=== PATIENT | male | born 2000 | race Two or more races ===

== ENCOUNTER 2023-04-09 09:38 | Emergency (ER) | payer MEDICAID ==
[~2023-04-09] VITALS: Ht 185.4 cm; Wt 86.0 kg
[2023-04-09] MEDS ORDERED: VANCOMYCIN 1GM/250ML 250 ML IV ONE (12:45)
[2023-04-09] MEDS ORDERED: PIPERACILLIN-TAZO 4.5GM 100 ML IV ONE (12:45)
[2023-04-09 13:34] LABS: Albumin 3.8 g/dL (3.4-5.0); Calcium 9.8 mg/dL (8.5-10.1)
[2023-04-09 13:39] LABS: BUN/Creatinine Ratio 11.7 (10.0-20.0); Bilirubin, Total 1.1 mg/dL (0.2-1.0); Total Protein 8.4 g/dL (6.4-8.2)
[2023-04-09 13:42] LABS: Basophils # (auto) 0.1 10 ^3/uL (0-0.2); Basophils % (auto) 0.3 % (0.0-2.0); Eosinophils # (auto) 0 10 ^3/uL (0-0.8); Eosinophils % (auto) 0.1 % (0.0-7.0); Lymphocytes # (auto) 2.1 10 ^3/uL (0.4-5.4); Lymphocytes % (auto) 8.9 % (10.0-50.0); Mean Corpuscular Hemoglobin 30.4 pg (28.0-32.0); Mean Corpuscular Volume 89.3 fL (80.0-100.0); Monocytes # (auto) 2.7 10 ^3/uL (0-1.3); Monocytes % (auto) 11.6 % (0.0-12.0); Neutrophils # (auto) 18.7 10 ^3/uL (1.6-8.6); Neutrophils % (auto) 79.1 % (37.0-80.0); Nucleated Red Blood Cells % 0.1 %; Red Blood Cells 5.26 10^6/uL (4.5-5.90); Red Cell Distribution Width 12.4 % (11.8-14.3); White Blood Cell 23.6 10^3/uL (4.4-10.8)
[2023-04-09 13:59] LABS: INR 1.06 (0.9-1.15); Prothrombin Time 11.1 sec (9.3-11.8)
[2023-04-09 17:43] VITALS: BP 95/67; PULSE 125; RESP 18; TEMP 98.9; O2SAT 98
== END 2023-04-09 18:43 | disposition short-term general hospital (02) ==
LOC: ER 09:38
DX: S63.690A Other sprain of right index finger, initial encounter (principal); I89.1 Lymphangitis; Z79.01 Long term (current) use of anticoagulants; Z79.899 Other long term (current) drug therapy; X58.XXXA Exposure to other specified factors, initial encounter; Y93.89 Activity, other specified; Y92.89 Other specified places as the place of occurrence of the external cause; Y99.8 Other external cause status
CPT/HCPCS: 36415; 73200; 80053; 85025; 85610; 87040; 96365; 96366; 96367; 99285; J2543; J3370